=== PATIENT | female | born 1950 | race Caucasian/White ===

== ENCOUNTER 2017-11-19 11:57 | Emergency (ER) | payer OTHER, MEDICARE ==
--- NOTE | 2017-11-19 12:51 | ER Document Report ---
ED Medical Screen (RME) - General Chief Complaint: Flank Pain Stated Complaint: LOW BACK PAIN Time Seen by Provider: 11/19/17 12:42 Notes: 67-year-old female with greater than 1 month history of "my kidneys been bothering me". States she has had lots of UTIs in the past, drinks lots of water and cranberry juice to suppress the urine infections. She reports her urine for the past month or more has had a "awful smell and sometimes it has bubbles". She does not have a local doctor this time. I have greeted and performed a rapid initial assessment of this patient. A comprehensive ED assessment and evaluation of the patient, analysis of test results and completion of the medical decision making process will be conducted by additional ED providers. - Related Data Allergies/Adverse Reactions: Sulfa (Sulfonamide Antibiotics) Allergy (Verified 11/19/17 12:45) Past Medical History - Social History Chew tobacco use (# tins/day): No Frequency of alcohol use: None Drug Abuse: None Renal/ Medical History: Denies: Hx Peritoneal Dialysis Physical Exam - Vital signs Vitals: Temp Pulse Resp BP Pulse Ox 98.1 F 88 16 181/104 H 97 11/19/17 12:18 11/19/17 12:18 11/19/17 12:18 11/19/17 12:18 11/19/17 12:18 Course - Vital Signs Vital signs: Temp Pulse Resp BP Pulse Ox 98.1 F 88 16 181/104 H 97 11/19/17 12:18 11/19/17 12:18 11/19/17 12:18 11/19/17 12:18 11/19/17 12:18
[2017-11-19 13:34] LABS: APPEARANCE,URINE CLEAR; BILIRUBIN,URINE NEGATIVE (NEGATIVE); CALCIUM OXALATE CRYSTALS,URINE MODERATE /HPF; COLOR,URINE YELLOW; GLUCOSE, URINE NEGATIVE (NEGATIVE); KETONES,URINE TRACE mg/dL (NEGATIVE); LEUKOCYTE ESTERASE,URINE LARGE (NEGATIVE); NITRITE,URINE NEGATIVE (NEGATIVE); PROTEIN,URINE NEGATIVE (NEGATIVE); URINE SPECIFIC GRAVITY 1.021
[2017-11-19 13:46] LABS: ABSOLUTE LYMPHOCYTES (AUTO) 1.5 10^3/uL (0.5-4.7); ABSOLUTE MONOCYTES (AUTO) 0.6 10^3/uL (0.1-1.4); ABSOLUTE NEUT (AUTO) 4.1 10^3/uL (1.7-8.2); BASOPHILS % (AUTO) 0.4 % (0-2); EOSINOPHILS % (AUTO) 0.7 % (0-6); HEMATOCRIT 42.9 % (36.0-47.0); HEMOGLOBIN 14.3 g/dL (12.0-15.5); LYMPHOCYTES % (AUTO) 24.6 % (13-45); MEAN CORPUSCULAR HGB CONC 33.3 g/dL (32.0-36.0); MEAN CORPUSCULAR VOLUME 90 fl (80-97); MONOCYTES % (AUTO) 8.8 % (3-13); PLATELET COUNT 163 10^3/uL (150-450); RED BLOOD COUNT 4.77 10^6/uL (3.72-5.28); RED CELL DISTRIBUTION WIDTH 13.5 % (11.5-14.0); SEGMENTED NEUTROPHILS % (AUTO) 65.5 % (42-78); TOTAL CELLS COUNTED % (AUTO) 100 %; WHITE BLOOD COUNT 6.3 10^3/uL (4.0-10.5)
[2017-11-19 14:00] LABS: ALANINE AMINOTRANSFERASE 30 U/L (9-52); ALBUMIN 4.8 g/dL (3.5-5.0); ALKALINE PHOSPHATASE 81 U/L (38-126); ANION GAP 15 (5-19); ASPARTATE AMINO TRANSFERASE 29 U/L (14-36); BILIRUBIN,DIRECT 0.3 mg/dL (0.0-0.4); BLOOD UREA NITROGEN 16 mg/dL (7-20); CARBON DIOXIDE 27 mmol/L (22-30); CHLORIDE 105 mmol/L (98-107); GLUCOSE 98 mg/dL (75-110); SODIUM 146.9 mmol/L (137-145); TOTAL PROTEIN 8.4 g/dL (6.3-8.2)
[2017-11-19] MEDS ORDERED: CEFTRIAXONE INJ 1000 MG VIAL IM ONE (14:25)
[2017-11-19] MEDS ORDERED: FENTANYL CITRATE INJ/PF 100 MCG/2 ML AMPUL IM ONE (14:25)
[2017-11-19] MEDS ORDERED: LIDOCAINE 1% INJ-PF (10 MG/ML) 30 ML SDV INFIL ONE (14:37)
--- NOTE | 2017-11-19 14:37 | ER Document Report ---
ED General - General Chief Complaint: Flank Pain Stated Complaint: LOW BACK PAIN Time Seen by Provider: 11/19/17 12:42 Mode of Arrival: Ambulatory Information source: Patient Notes: 67-year-old female presents emergency department with a one month history of flank pain. Patient complains of left flank pain with radiation down into the left lower quadrant. She has had some associated dysuria, hematuria, increased urgency, increased frequency. Patient states that she has a history of urinary tract infections in the past. She states that she has been using Azo currently for possible urinary tract infection. She states that her urine smells and has bubbles in it. Patient states that she is also had some vaginal discharge and vaginal itching. She states that she started herself on hkyr-obj-lwrdzsc medication for this. She continues to have symptoms. She denies being sexually active. Patient is not concerned about sexually transmitted diseases at this time. Patient denies any nausea, vomiting, diarrhea, constipation. - HPI Onset: Other - 1 months Onset/Duration: Gradual Quality of pain: Burning Severity: Mild Associated symptoms: Other - Dysuria, increased urgency, increased frequency, vaginal discharge Exacerbated by: Denies Relieved by: Denies Similar symptoms previously: No Recently seen / treated by doctor: No - Related Data Allergies/Adverse Reactions: Sulfa (Sulfonamide Antibiotics) Allergy (Verified 11/19/17 12:45) Past Medical History - Social History Smoking Status: Never Smoker Chew tobacco use (# tins/day): No Frequency of alcohol use: None Drug Abuse: None Family History: Reviewed & Not Pertinent Patient has suicidal ideation: No Patient has homicidal ideation: No Renal/ Medical History: Denies: Hx Peritoneal Dialysis Past Surgical History: Reports: Hx Cholecystectomy Review of Systems - Review of Systems Constitutional: No symptoms reported EENT: No symptoms reported Cardiovascular: No symptoms reported Respiratory: No symptoms reported Gastrointestinal: Abdominal pain Genitourinary: Burning, Dysuria, Flank pain Female Genitourinary: Vaginal discharge, Vaginal odor Musculoskeletal: No symptoms reported Skin: No symptoms reported Hematologic/Lymphatic: No symptoms reported Neurological/Psychological: No symptoms reported -: Yes All other systems reviewed and negative Physical Exam - Vital signs Vitals: Temp Pulse Resp BP Pulse Ox 98.1 F 88 16 181/104 H 97 11/19/17 12:18 11/19/17 12:18 11/19/17 12:18 11/19/17 12:18 11/19/17 12:18 Interpretation: Normal - Notes Notes: PHYSICAL EXAMINATION: GENERAL: Well-appearing, well-nourished and in no acute distress. HEAD: Atraumatic, normocephalic. EYES: Pupils equal round and reactive to light, extraocular movements intact, conjunctiva are normal. ENT: Nares patent, oropharynx clear without exudates. Moist mucous membranes. NECK: Normal range of motion, supple without lymphadenopathy LUNGS: Breath sounds clear to auscultation bilaterally and equal. No wheezes rales or rhonchi. HEART: Regular rate and rhythm without murmurs ABDOMEN: Soft, left flank tenderness to palpation. Left lower quadrant tenderness to palpation. Nondistended abdomen. No guarding, no rebound. No masses appreciated. Female : No vaginal discharge appreciated. No cervical motion tenderness. No ovarian tenderness to palpation. Musculoskeletal: Normal range of motion, no pitting or edema. No cyanosis. NEUROLOGICAL: Cranial nerves grossly intact. Normal speech, normal gait. Normal sensory, motor exams PSYCH: Normal mood, normal affect. SKIN: Warm, Dry, normal turgor, no rashes or lesions noted. Course - Re-evaluation Re-evalutation: 11/19/17 15:42 Labs and imaging obtained. CT abdomen and pelvis was done. She has constipation. Patient does have a urinary tract infection. Patient given a gram of Rocephin while in the emergency department. I will discharge home on rocephin. Patient complains of vaginal itching. Pelvic exam done. No clue cells appreciated. No yeast. I will treat patient with metronidazole for suspected bacterial vaginosis. I will provide the patient with a primary care physician to follow-up with. Patient instructed to take the medications prescribed as directed, to follow-up with the primary care physician this week, and to return to the emergency department for worsening symptoms. Patient is agreeable with the plan of care. - Vital Signs Vital signs: Temp Pulse Resp BP Pulse Ox 98.1 F 88 16 181/104 H 97 11/19/17 12:18 11/19/17 12:18 11/19/17 12:18 11/19/17 12:18 11/19/17 12:18 - Laboratory Result Diagrams: 11/19/17 13:00 11/19/17 13:00 Laboratory results interpreted by me: 11/19/17 11/19/17 12:30 13:00 Sodium 146.9 H Total Protein 8.4 H Urine Ketones TRACE H Urine Urobilinogen 2.0 H Ur Leukocyte Esterase LARGE H Urine Ascorbic Acid 20 H Discharge - Discharge Clinical Impression: Bacterial vaginosis Urinary tract infection Qualifiers: Urinary tract infection type: acute cystitis Hematuria presence: without hematuria Qualified Code(s): N30.00 - Acute cystitis without hematuria Constipation Qualifiers: Constipation type: unspecified constipation type Qualified Code(s): K59.00 - Constipation, unspecified Condition: Good Disposition: HOME, SELF-CARE Instructions: Urinary Tract Infection ([facility]), Vaginosis, Bacterial ([facility]), Constipation ([facility]) Prescriptions: Levofloxacin 750 mg PO DAILY 7 Days #7 tablet Metronidazole [Flagyl 500 mg Tablet] 500 mg PO BID #14 tablet Referrals: BYRON JOYCE MD [ACTIVE STAFF] - Follow up as needed
[2017-11-19 14:42] LABS: BACTERIA (WET MOUNT) 3+ BACTERIA SEEN; RBCS (WET MOUNT) 2+ RBCS SEEN; T.VAGINALIS (WET MOUNT) NO TRICHOMONAS SEEN; WBCS (WET MOUNT) 1+ WBCS SEEN; YEAST (WET MOUNT) NO YEAST SEEN
--- NOTE | 2017-11-19 14:48 | RADIOLOGY REPORT (SQ) ---
EXAM DESCRIPTION: CT ABD/PELVIS NO ORAL OR IV COMPLETED DATE/TIME: 11/19/2017 2:36 pm REASON FOR STUDY: left flank pain COMPARISON: None. TECHNIQUE: CT scan of the abdomen and pelvis performed without intravenous or oral contrast. Images reviewed with lung, soft tissue, and bone windows. Reconstructed coronal and sagittal MPR images revi ewed. All images stored on PACS. All CT scanners at this facility use dose modulation, iterative reconstruction, and/or weight based d osing when appropriate to reduce radiation dose to as low as reasonably achievable (ALARA). [facility]: Dose Right [facility]: CareDose [facility]: Dose Right [facility]: Teradose 4D [facility]: [employer] RADIATION DOSE: mGy. LIMITATIONS: None. FINDINGS: LOWER CHEST: No significant findings. No nodules or infiltrates. NON-CONTRASTED LIVER, SPLEEN, ADRENALS: Evaluation limited by lack of IV contrast. No identified sign ificant masses. PANCREAS: No masses. No peripancreatic inflammatory changes. GALLBLADDER: Surgically absent. RIGHT KIDNEY AND URETER: No suspicious masses. Assessment limited by lack of IV contrast. No signif icant calcifications. No hydronephrosis or hydroureter. LEFT KIDNEY AND URETER: No suspicious masses. Assessment limited by lack of IV contrast. No signifi cant calcifications. No hydronephrosis or hydroureter. AORTA AND RETROPERITONEUM: No aneurysm. No retroperitoneal masses or adenopathy. BOWEL AND PERITONEAL CAVITY: Considerable fecal material is present in the colon. No obvious masses. No inflammatory changes. Mild diverticulosis coli with no evidence diverticulitis. APPENDIX: Not identified. PELVIS, BLADDER, AND ABDOMINAL WALL:No abnormal masses. No free fluid. Bladder normal. BONES: No significant findings. OTHER: No other significant finding. IMPRESSION: 1. Possible constipation. 2. Diverticulosis coli with no evidence of diverticulitis. COMMENT: Quality ID # [id number]: Final reports with documentation of one or more dose reduction techniques (e.g., Automated exposure control, adjustment of the mA and/or kV according to patient size, use of iterative reconstruction technique) TECHNICAL DOCUMENTATION: JOB ID: [id number] [employer]- All Rights Reserved Reading location - IP/workstation name: [email or web address]
[2017-11-19 16:08] LABS: CHLAM PCR NOT DETECTED (NOT DETECT); GON PCR NOT DETECTED (NOT DETECT)
[2017-11-19 16:25] VITALS: BP 190/88
== END 2017-11-19 16:25 | disposition home or self-care (01) ==
LOC: ER 11:57
DX: N76.0 Acute vaginitis (principal); B96.89 Other specified bacterial agents as the cause of diseases classified elsewhere; N30.00 Acute cystitis without hematuria; K59.00 Constipation, unspecified; R10.32 Left lower quadrant pain; R30.0 Dysuria; R31.9 Hematuria, unspecified; R39.15 Urgency of urination; R35.0 Frequency of micturition
CPT/HCPCS: 99284; 96372; 36415; 87086; 87210; 85025; 87088; 80053; 81001; 87186; 87491; 87591; 74176; J3010; J3490; J0696

== ENCOUNTER 2018-09-30 07:01 | Day surgery (SDC) | payer MEDICARE, OTHER ==
[~2018-09-30 07:01] MED LIST: KETOROLAC TROMETHAMINE 0.45% 4 DROP/0.4 ML DROPERETTE OD PRN
[2018-09-30] MEDS: TROPICAMIDE 1% OPH SOLN 3 ML OD PRN ×3 (07:42→07:58)
[2018-09-30] MEDS: TETRACAINE HCL 0.5% OPH SOLN 4 ML OD PRN ×4 (07:42→08:16)
[2018-09-30] MEDS: BESIFLOXACIN HCL 0.6% OPH SUSP 5 ML BOTTLE OD PRN ×5 (07:43→09:27)
[2018-09-30] MEDS: CYCLOPENTOLATE 0.2%/PHENYLEPHRINE 1% OPH SOLN 2 ML OD PRN ×3 (07:43→07:58)
[2018-09-30] MEDS ORDERED: MIDAZOLAM 2 MG/2 ML INJ ONE (07:55)
[2018-09-30] MEDS: EPINEPHRINE INJ/PF 1 MG/1 ML AMPULE ONE ×2 (08:28)
[2018-09-30] MEDS: CHONDR SU A NA/HYALUR INTRAOC KIT (SURGICARE) ONE ×2 (08:28)
[2018-09-30] MEDS: LIDOCAINE 1%/PHENYLEPHRINE 1.5% 1 ML VIAL ONE ×2 (08:28)
[2018-09-30] MEDS: DORZOLAMIDE HCL 2%/TIMOLOL MALEAT 0.5% OPH SOLN 10 ML OD PRN ×3 (08:45→09:27)
--- NOTE | 2018-10-01 10:04 | [facility] OPERATIVE REPORT E ---
[facility] Operative Report NAME: ARABELLA BOONE AGE: 67Y DATE OF SURGERY: 09/30/2018 ROOM: PREOPERATIVE DIAGNOSIS: CATARACT, RIGHT EYE. POSTOPERATIVE DIAGNOSIS: CATARACT, RIGHT EYE. OPERATION: Cataract extraction with insertion of an IOL of the right eye. SURGEON: TORSTEN MIDDLETON M.D. ANESTHESIA: Topical. PROCEDURE: After obtaining appropriate consent, the patient's right eye was prepped and draped in sterile fashion as well as the surgeon in a sterile manner and cataract surgery was started. First a paracentesis blade was used to make a side-port incision. Viscoelastic was used to inflate the anterior chamber. Next a 2.4 mm incision was made with a 2.4 mm blade, clear corneal temporally. A continuous capsulorrhexis was made using a cystotome and Utrata forceps. Following this hydrodissection was carried out to make the lens fully loose and mobile and it was rotated 90 degrees. Following this, a ygnypx-hux-mtpnnsu technique was used to phacoemulsify the lens with a CDE of 9.24. The remaining cortex was removed with irrigation/aspiration. Provisc was instilled into the capsular bag to inflate the bag. A SN60WF, 21.5 diopter lens was placed. The remaining viscoelastic material was removed with irrigation/aspiration. Following this, the incision was found to be watertight. Besivance was instilled into the eye and a protective shield was placed over the eye. The patient returned to the postoperative recovery in stable condition. DICTATING PHYSICIAN: TORSTEN MIDDLETON M.D. [id number] PHY#: [id number] ID: [id number] JOB#: [id number] ACCT: [id number] cc:TORSTEN MIDDLETON M.D. >
--- NOTE | 2018-10-01 10:04 | [facility] DISCHARGE SUMMARY E ---
[facility] Discharge Summary NAME: ARABELLA BOONE AGE: 67Y ADMITTED: 09/30/2018 DISCHARGED: 09/30/2018 DIAGNOSIS: CATARACT, RIGHT EYE. SUMMARY: This is a 67-year-old patient who underwent cataract extraction, right eye. They underwent surgery because they were having trouble seeing road signs at night. DISCHARGE INSTRUCTIONS: They should use their Vigamox, Prolensa, and Pred Forte at 3 p.m. and 8 p.m. and sleep with a rigid shield. I will see them for a 1-day postoperative tomorrow. DICTATING PHYSICIAN: TORSTEN MIDDLETON M.D. [id number] PHY#: [id number] ID: [id number] JOB#: [id number] ACCT: [id number] cc:TORSTEN MIDDLETON M.D. >
== END 2018-09-30 09:27 | disposition home or self-care (01) ==
LOC: SC 07:01
PROVIDERS: ATTEND Internal Medicine
DX: H25.813 Combined forms of age-related cataract, bilateral (principal); I10 Essential (primary) hypertension; I49.9 Cardiac arrhythmia, unspecified; Z79.899 Other long term (current) drug therapy; Z88.2 Allergy status to sulfonamides
CPT/HCPCS: 66984; V2632; J2250; J3490 ×2; A9270; J0171; J2370; 142